=== PATIENT | male | born 1980 | race Caucasian/White ===

== ENCOUNTER → 2022-11-03 09:35 | Outpatient (BNVA) | payer BC, SELFPAY | PROVIDERS: PCP Family Medicine; Visit Provider Psychiatry & Neurology Neurology | DX: G40.909 Epilepsy, unspecified, not intractable, without status epilepticus (principal) | CPT/HCPCS: 36415; 80053; 85025 ==

== ENCOUNTER 2023-01-29 08:30 | Outpatient (CLI) | payer BC, SELFPAY | END 2023-01-29 08:31 | disposition home or self-care (01) | LOC: LAB 08:31 | PROVIDERS: PCP Family Medicine; Visit Provider Psychiatry & Neurology Neurology | DX: G40.A19 Absence epileptic syndrome, intractable, without status epilepticus (principal); R94.01 Abnormal electroencephalogram [EEG] | CPT/HCPCS: 36415; 80201 ==